=== PATIENT | male | born 1975 | race Hispanic/Latino ===

== ENCOUNTER 2016-12-03 08:04 | Emergency (ER) | payer MEDICAID ==
[~2016-12-03] VITALS: Ht 185.4 cm; Wt 100.0 kg
[2016-12-03] MEDS ORDERED: FLEXERIL10 MG PO (08:38)
[2016-12-03] MEDS ORDERED: MOTRIN600 MG PO (08:38)
[2016-12-03] MEDS ORDERED: HTN (08:46)
[2016-12-03 09:04] VITALS: BP 149/102
== END 2016-12-03 09:06 | disposition home or self-care (01) ==
LOC: EME 08:04
DX: S39.012A Strain of muscle, fascia and tendon of lower back, initial encounter (principal); X50.1XXA Overexertion from prolonged static or awkward postures, initial encounter; I10 Essential (primary) hypertension
CPT/HCPCS: 99281; 99283